=== PATIENT | male | born 1965 | race African-American/Black ===

== ENCOUNTER 2023-08-27 09:59 | Inpatient (IN) | payer OTHER ==
[2023-08-27 10:35] VITALS: BMI 19.8
[2023-08-27] MEDS ORDERED: BENZONATATE 200 MG CAPSULE PO PRN (11:01)
[2023-08-27] MEDS ORDERED: NALOXONE HCL 0.4 MG/ML VIAL IM PRN (11:01)
[2023-08-27] MEDS ORDERED: NICOTINE POLACRILEX 2 MG GUM BUC PRN (11:01)
[2023-08-27] MEDS ORDERED: MAGNESIUM HYDROX 2400MG/30ML ORAL SUSPENSION 30 ML CUP PO PRN (11:01)
[2023-08-27] MEDS ORDERED: LOPERAMIDE HCL 2 MG CAPSULE PO PRN (11:01)
[2023-08-27] MEDS ORDERED: ACETAMINOPHEN 325 MG TABLET (FP) PO PRN (11:01)
[2023-08-27] MEDS ORDERED: guaiFENesin 600 MG TABLET.ER (FP) PO PRN (11:01)
[2023-08-27] MEDS ORDERED: POLYETHYLENE GLYCOL (HEALTHYLAX) 3350 17 GM PACKET PO PRN (11:01)
[2023-08-27] MEDS ORDERED: NALOXONE HCL (KLOXXADO) 8 MG SPRAY NS PRN (11:01)
[2023-08-27] MEDS ORDERED: BENZOCAINE/MENTHOL (CHLORASEPTIC ) LOZENGE MM PRN (11:01)
[2023-08-27] MEDS ORDERED: MAG HYDROX/AL HYDROX/SIMETH 30 ML UNIT-DOSE CUP PO PRN (11:01)
[2023-08-27] MEDS ORDERED: PATIENT'S OWN MEDICATION (NON-FORMULARY) (Darunavir/Cob/Emtri/Tenof Alaf 1 EACH) PO SCH (11:45)
[2023-08-27] MEDS ORDERED: DARUNAVIR 800 MG/COBICISTAT 150MG TABLET PO SCH (11:45)
[2023-08-27] MEDS ORDERED: EMTRICITABINE/TENOFOV ALAFENAM (DESCOVY) TABLET PO SCH (11:45)
[2023-08-27] MEDS: AZITHROMYCIN 250 MG TABLET PO SCH (13:35)
[2023-08-27] MEDS: RILPIVIRINE HCL 25 MG TABLET PO SCH (14:03)
[2023-08-27] MEDS: DARUNAVIR/COB/EMTRI/TENOF ALAF 1 EACH TABLET PO SCH (14:03)
[2023-08-27] MEDS: THIAMINE HCL 100 MG TABLET (FP) PO SCH (21:18)
[2023-08-27] MEDS: MELATONIN 5 MG TABLETS PO SCH (21:18)
[2023-08-28] MEDS ORDERED: PATIENT'S OWN MEDICATION (NON-FORMULARY) (Lisinopril/Hydrochlorothiazide [Lisinopril-Hctz PO SCH (10:00)
[2023-08-28 11:24] LABS: CHLORIDE 109 mmol/L (98-107); SODIUM 142 mmol/L (136-145)
[2023-08-28 11:25] LABS: HEMATOCRIT 37.2 % (35.4-49); HEMOGLOBIN 12.2 GM/dL (11.7-16.9); MCH 31.7 pg (25.7-33.7); MCHC 32.7 g/dl (32.0-35.9); MEAN CELL VOLUME 96.9 fl (80-96); MEAN PLT VOLUME 9.4 fl (7.5-11.1); PLATELET COUNT 210 10^3/uL (134-434); RBC 3.84 M/mm3 (4.00-5.60); RDW 14.4 % (11.9-15.9); WHITE BLOOD COUNT 6.4 K/mm3 (4.0-10.0)
[2023-08-28] MEDS: HYDROCHLOROTHIAZIDE 25 MG TABLET (FP) PO SCH (11:27)
[2023-08-28] MEDS: PRENATAL VITAMINS W/ FOLIC ACID TABLET (FP) PO SCH (11:27)
[2023-08-28] MEDS: SULFAMETHOXAZOLE/TRIMETHOPRIM 800MG/160MG D.S. TABLET PO SCH (11:27)
[2023-08-28] MEDS: LISINOPRIL 20 MG TABLET PO SCH (11:27)
[2023-08-28 11:42] LABS: ALBUMIN 2.8 g/dl (3.4-5.0); ANION GAP 9 mmol/L (4-13); BLOOD UREA NITROGEN 12.8 mg/dL (7-18); CALCIUM 8.9 mg/dL (8.5-10.1); CO2 24 mmol/L (21-32)
[2023-08-28 11:43] LABS: GLUCOSE,RANDOM 161 mg/dL (74-106)
[2023-08-28 11:45] LABS: BILIRUBIN,TOTAL 0.4 mg/dL (0.2-1); SGOT/AST 15 U/L (15-37); SGPT/ALT 20 U/L (13-61)
[2023-08-28 11:46] LABS: ALK PHOS 53 U/L (45-117); TOT PROT 6.8 g/dl (6.4-8.2)
[2023-08-28 11:54] LABS: SYPHILIS W/ RPR CONF REACTIVE (NONREACTIVE)
[2023-08-29 07:48] LABS: URINE APPEARANCE CLEAR; URINE BILIRUBIN NEGATIVE (NEGATIVE); URINE COLOR YELLOW; URINE GLUCOSE (UA) NEGATIVE (NEGATIVE); URINE KETONE NEGATIVE (NEGATIVE); URINE LEUK ESTERASE NEGATIVE (NEGATIVE); URINE NITRITE NEGATIVE (NEGATIVE); URINE PROTEIN NEGATIVE (NEGATIVE); URINE UROBILINOGEN 0.2 mg/dL (0.2-1.0)
[2023-08-29] MEDS: RILPIVIRINE HCL 25 MG TABLET PO SCH (08:39)
[2023-08-29] MEDS: IBUPROFEN 600 MG TABLET (FP) PO PRN (09:52)
[2023-08-29] MEDS: COLLOIDAL OATMEAL 1 BAR EACH TP PRN (19:11)
[2023-08-30] MEDS ORDERED: CARBAMIDE PEROXIDE 6.5% OTIC 15 ML BOTTLE AD SCH (12:30)
[2023-08-30] MEDS: NALTREXONE HCL 50 MG TABLET PO SCH (13:23)
[2023-08-30] MEDS: METHOCARBAMOL 500 MG TABLET PO PRN (15:11)
[2023-08-30] MEDS: MELATONIN 5 MG TABLETS PO SCH (21:10)
[2023-08-31] MEDS: IBUPROFEN 400 MG TABLET (FP) PO PRN (06:14)
[2023-08-31] MEDS: NALTREXONE HCL 50 MG TABLET PO SCH (09:55)
[2023-08-31] MEDS: FLU VACCINE (FLULAVAL) PF 60 MCG/0.5 ML SYRINGE 2023-2024 IM ONE (10:43)
[2023-08-31 11:47] LABS: INR 0.99 (0.83-1.09); PROTHROMBIN TIME (PATIENT) 11.5 SEC (9.7-13.0)
[2023-08-31 11:53] LABS: MAGNESIUM 1.7 mg/dL (1.8-2.4)
[2023-08-31] MEDS: CARBAMIDE PEROXIDE 6.5% OTIC 15 ML BOTTLE AD PRN (12:39)
[2023-08-31] MEDS: CARBAMIDE PEROXIDE 6.5% OTIC 15 ML BOTTLE AD SCH (14:24)
[2023-08-31] MEDS: MAGNESIUM OXIDE 400 MG TABLET (FP) PO SCH (14:59)
[2023-09-06] MEDS: VARENICLINE TARTRATE 0.5 MG TAB PO SCH (15:04)
[2023-09-06] MEDS: SUMAtriptan SUCCINATE 25 MG TABLET PO ONE (15:04)
[2023-09-07] MEDS: SUVOREXANT 10 MG TABLET PO PRN (22:05)
[2023-09-08] MEDS: hydrOXYzine PAMOATE 25 MG CAPSULE (FP) PO PRN (21:10)
[2023-09-09] MEDS: VARENICLINE TARTRATE 0.5 MG TAB PO SCH (10:34)
[2023-09-09] MEDS ORDERED: SUVOREXANT 10 MG TABLET PO PRN (22:00)
[2023-09-10 07:13] VITALS: TEMP 98.3
[2023-09-10 10:18] VITALS: BP 126/83; PULSE 84; RESP 16
[2023-09-14] MEDS ORDERED: VARENICLINE TARTRATE 1 MG TAB PO SCH (22:00)
== END 2023-09-10 09:10 | disposition home or self-care (01) | DRG 772 ==
LOC: YASAS 09:59 → Y3E 15:48
PROVIDERS: ADMIT Allergy & Immunology; ATTEND Psychiatry & Neurology Pain Medicine
PROC: HZ42ZZZ Group Counseling for Substance Abuse Treatment, Cognitive-Behavioral (ICD-10-PCS; principal; 2023-08-27)
DX: F10.20 Alcohol dependence, uncomplicated (principal); F14.20 Cocaine dependence, uncomplicated; F12.20 Cannabis dependence, uncomplicated; F17.210 Nicotine dependence, cigarettes, uncomplicated; F32.A Depression, unspecified; Z21 Asymptomatic human immunodeficiency virus [HIV] infection status; I10 Essential (primary) hypertension; H61.21 Impacted cerumen, right ear; J06.9 Acute upper respiratory infection, unspecified
CPT/HCPCS: 36415; 80053; 80061; 80307; 81003; 82140; 82652; 82962; 83036; 83735; 85027; 85610; 86593; 86780; 86803; 87635; 87811; 90686; 93005; 93010; G0008

== ENCOUNTER 2023-12-28 11:07 | Inpatient (IN) | payer OTHER ==
[2023-12-28 12:23] VITALS: BMI 19.8
[2023-12-28] MEDS ORDERED: LOPERAMIDE HCL 2 MG CAPSULE PO PRN (12:47)
[2023-12-28] MEDS ORDERED: NALOXONE HCL (KLOXXADO) 8 MG SPRAY NS PRN (12:47)
[2023-12-28] MEDS ORDERED: BENZOCAINE/MENTHOL (CHLORASEPTIC ) LOZENGE MM PRN (12:47)
[2023-12-28] MEDS ORDERED: guaiFENesin 600 MG TABLET.ER (FP) PO PRN (12:47)
[2023-12-28] MEDS ORDERED: NALOXONE HCL 0.4 MG/ML VIAL IM PRN (12:47)
[2023-12-28] MEDS ORDERED: MAG HYDROX/AL HYDROX/SIMETH 30 ML UNIT-DOSE CUP PO PRN (12:47)
[2023-12-28] MEDS ORDERED: BENZONATATE 200 MG CAPSULE PO PRN (12:47)
[2023-12-28] MEDS: THIAMINE 100 MG TABLET PO SCH (21:28)
[2023-12-28] MEDS: MELATONIN 5 MG TABLETS PO SCH (21:28)
[2023-12-29] MEDS: RILPIVIRINE HCL 25 MG TABLET PO SCH (07:02)
[2023-12-29] MEDS: DARUNAVIR/COB/EMTRI/TENOF ALAF 1 EACH TABLET PO SCH (07:02)
[2023-12-29] MEDS: HYDROCHLOROTHIAZIDE 25 MG TABLET (FP) PO SCH (09:55)
[2023-12-29] MEDS: LISINOPRIL 20 MG TABLET PO SCH (09:55)
[2023-12-29] MEDS: PRENATAL VITAMINS W/ FOLIC ACID TABLET (FP) PO SCH (09:55)
[2023-12-29] MEDS ORDERED: PATIENT'S OWN MEDICATION (NON-FORMULARY) (Lisinopril/Hydrochlorothiazide [Lisinopril-Hctz PO SCH (10:00)
[2023-12-29 11:31] LABS: HEMATOCRIT 37.6 % (35.4-49); HEMOGLOBIN 12.5 GM/dL (11.7-16.9); MCH 32.5 pg (25.7-33.7); MCHC 33.1 g/dl (32.0-35.9); MEAN CELL VOLUME 98.1 fl (80-96); MEAN PLT VOLUME 9.1 fl (7.5-11.1); PLATELET COUNT 215 10^3/uL (134-434); RBC 3.84 M/mm3 (4.00-5.60); RDW 15.8 % (11.9-15.9); WHITE BLOOD COUNT 6.9 K/mm3 (4.0-10.0)
[2023-12-29 11:32] LABS: PH,URINE 5.5 (5.0-8.0); URINE APPEARANCE CLEAR; URINE BILIRUBIN NEGATIVE (NEGATIVE); URINE COLOR YELLOW; URINE GLUCOSE (UA) NEGATIVE (NEGATIVE); URINE KETONE NEGATIVE (NEGATIVE); URINE LEUK ESTERASE NEGATIVE (NEGATIVE); URINE NITRITE NEGATIVE (NEGATIVE); URINE PROTEIN NEGATIVE (NEGATIVE); URINE UROBILINOGEN 0.2 mg/dL (0.2-1.0)
[2023-12-29 11:57] LABS: POTASSIUM 4.2 mmol/L (3.5-5.1)
[2023-12-29 11:59] LABS: CALCIUM 9.3 mg/dL (8.5-10.1)
[2023-12-29 12:00] LABS: ALBUMIN 3.5 g/dl (3.4-5.0); BLOOD UREA NITROGEN 21.8 mg/dL (7-18)
[2023-12-29 12:03] LABS: CREATININE 1.3 mg/dL (0.55-1.3)
[2023-12-29 12:05] LABS: TOT PROT 7.2 g/dl (6.4-8.2)
[2023-12-29 12:13] LABS: BILIRUBIN,TOTAL 0.5 mg/dL (0.2-1)
[2023-12-29 13:05] LABS: SYPHILIS W/ RPR CONF REACTIVE (NONREACTIVE)
[2023-12-29] MEDS: IBUPROFEN 600 MG TABLET (FP) PO PRN (17:01)
[2023-12-29] MEDS: NICOTINE POLACRILEX 2 MG GUM BUC PRN (21:17)
[2023-12-30] MEDS: hydrOXYzine PAMOATE 25 MG CAPSULE (FP) PO PRN (06:01)
[2023-12-30] MEDS: ACETAMINOPHEN 325 MG TABLET (FP) PO PRN (09:21)
[2023-12-30] MEDS ORDERED: SUMAtriptan SUCCINATE 25 MG TABLET PO PRN (14:36)
[2023-12-30] MEDS ORDERED: amLODIPine BESYLATE 2.5 MG TABLET (FP) PO SCH (14:45)
[2023-12-30] MEDS: SUMAtriptan SUCCINATE 25 MG TABLET PO ONE (15:55)
[2023-12-30] MEDS: amLODIPine BESYLATE 2.5 MG TABLET (FP) PO SCH (15:55)
[2023-12-31] MEDS: LIDOCAINE 4% PATCH TP SCH (10:04)
[2023-12-31] MEDS: LIDOCAINE PATCH REMOVAL MC SCH (21:23)
[2024-01-01] MEDS: MAGNESIUM HYDROX 2400MG/30ML ORAL SUSPENSION 30 ML CUP PO PRN (11:56)
[2024-01-02] MEDS: IBUPROFEN 400 MG TABLET (FP) PO PRN (21:51)
[2024-01-05] MEDS: BACLOFEN 10 MG TABLET (FP) PO SCH (10:46)
[2024-01-06] MEDS: POLYETHYLENE GLYCOL (HEALTHYLAX) 3350 17 GM PACKET PO PRN (12:09)
[2024-01-08] MEDS: SUMAtriptan SUCCINATE 25 MG TABLET PO PRN (09:59)
[2024-01-11 06:41] VITALS: RESP 16; TEMP 97.7
[2024-01-11 09:40] VITALS: BP 103/69; PULSE 67
== END 2024-01-11 09:46 | disposition home or self-care (01) | DRG 772 ==
LOC: YASAS 11:07 → Y3W 13:05
PROVIDERS: ADMIT Allergy & Immunology; ATTEND Psychiatry & Neurology Pain Medicine
PROC: HZ42ZZZ Group Counseling for Substance Abuse Treatment, Cognitive-Behavioral (ICD-10-PCS; principal; 2023-12-28)
DX: F14.20 Cocaine dependence, uncomplicated (principal); F12.20 Cannabis dependence, uncomplicated; F17.210 Nicotine dependence, cigarettes, uncomplicated; Z21 Asymptomatic human immunodeficiency virus [HIV] infection status; I10 Essential (primary) hypertension; M54.50 Low back pain, unspecified; G89.29 Other chronic pain; R76.8 Other specified abnormal immunological findings in serum; Z86.19 Personal history of other infectious and parasitic diseases
CPT/HCPCS: 36415; 80053; 80305; 80307; 81003; 85027; 86593; 86780; 86803; 87536; 87811; 93005; 93010; J0475

== ENCOUNTER 2024-04-25 12:10 | Inpatient (IN) | payer OTHER ==
[2024-04-25 13:25] VITALS: BMI 19.6
[2024-04-25] MEDS ORDERED: NICOTINE POLACRILEX 2 MG GUM BUC PRN (14:03)
[2024-04-25] MEDS ORDERED: NALOXONE (NARCAN) HCL 4 MG/0.1 ML SPRAY NS PRN (14:03)
[2024-04-25] MEDS ORDERED: POLYETHYLENE GLYCOL (HEALTHYLAX) 3350 17 GM PACKET PO PRN (14:03)
[2024-04-25] MEDS ORDERED: NALOXONE HCL 0.4 MG/ML VIAL IM PRN (14:03)
[2024-04-25] MEDS ORDERED: LOPERAMIDE HCL 2 MG CAPSULE PO PRN (14:03)
[2024-04-25] MEDS ORDERED: MAG HYDROX/AL HYDROX/SIMETH 30 ML UNIT-DOSE CUP PO PRN (14:03)
[2024-04-25] MEDS ORDERED: MAGNESIUM HYDROX 2400MG/30ML ORAL SUSPENSION 30 ML CUP PO PRN (14:03)
[2024-04-25] MEDS: THIAMINE 100 MG TABLET PO SCH (21:51)
[2024-04-25] MEDS: MELATONIN 5 MG TABLETS PO SCH (21:51)
[2024-04-26] MEDS: guaiFENesin 600 MG TABLET.ER (FP) PO PRN (06:38)
[2024-04-26] MEDS: BENZOCAINE/MENTHOL (CHLORASEPTIC ) LOZENGE MM PRN (06:38)
[2024-04-26] MEDS: PRENATAL VITAMINS W/ FOLIC ACID TABLET (FP) PO SCH (10:15)
[2024-04-26] MEDS: BENZONATATE 200 MG CAPSULE PO PRN (10:16)
[2024-04-26] MEDS: NICOTINE 14 MG/24 HOURS TOPICAL PATCH TD SCH (11:30)
[2024-04-26] MEDS: amLODIPine BESYLATE 10 MG TABLET (FP) PO SCH (11:31)
[2024-04-26] MEDS: BICTEGRAV/EMTRICIT/TENOFOV (BIKTARVY) 50-200-25 MG TABLET PO SCH (11:31)
[2024-04-26] MEDS: LISINOPRIL 20 MG TABLET PO SCH (11:31)
[2024-04-26] MEDS: RILPIVIRINE HCL 25 MG TABLET PO SCH (12:11)
[2024-04-26 14:31] LABS: HEMATOCRIT 38.2 % (35.4-49); HEMOGLOBIN 12.3 GM/dL (11.7-16.9); MCH 31.1 pg (25.7-33.7); MCHC 32.2 g/dl (32.0-35.9); MEAN CELL VOLUME 96.3 fl (80-96); MEAN PLT VOLUME 9.1 fl (7.5-11.1); PLATELET COUNT 174 10^3/uL (134-434); RBC 3.96 M/mm3 (4.00-5.60); RDW 14.5 % (11.9-15.9); WHITE BLOOD COUNT 5.5 K/mm3 (4.0-10.0)
[2024-04-26 14:32] LABS: PH,URINE 6.5 (5.0-8.0); URINE APPEARANCE CLEAR; URINE BILIRUBIN NEGATIVE (NEGATIVE); URINE COLOR YELLOW; URINE GLUCOSE (UA) NEGATIVE (NEGATIVE); URINE KETONE NEGATIVE (NEGATIVE); URINE LEUK ESTERASE NEGATIVE (NEGATIVE); URINE NITRITE NEGATIVE (NEGATIVE); URINE PROTEIN NEGATIVE (NEGATIVE); URINE UROBILINOGEN 0.2 mg/dL (0.2-1.0)
[2024-04-26 14:33] LABS: CHLORIDE 108 mmol/L (98-107); POTASSIUM 3.9 mmol/L (3.5-5.1); SODIUM 144 mmol/L (136-145)
[2024-04-26 14:35] LABS: ALBUMIN 3.1 g/dl (3.4-5.0); ANION GAP 10 mmol/L (4-13); BLOOD UREA NITROGEN 10.3 mg/dL (7-18); CALCIUM 8.8 mg/dL (8.5-10.1); CO2 26 mmol/L (21-32); GLUCOSE,RANDOM 89 mg/dL (74-106)
[2024-04-26 14:37] LABS: SGOT/AST 18 U/L (15-37); SGPT/ALT 18 U/L (13-61)
[2024-04-26 14:39] LABS: BILIRUBIN,TOTAL 0.4 mg/dL (0.2-1); CREATININE 0.9 mg/dL (0.55-1.3); TOT PROT 6.8 g/dl (6.4-8.2)
[2024-04-26 14:41] LABS: ALK PHOS 60 U/L (45-117)
[2024-04-26] MEDS: hydrOXYzine PAMOATE 25 MG CAPSULE (FP) PO PRN (19:19)
[2024-04-26] MEDS: IBUPROFEN 600 MG TABLET (FP) PO PRN (19:20)
[2024-04-27] MEDS: PENICILLIN G BENZATHINE 2,400,000 UNIT/4 ML PFS IM ONE (10:37)
[2024-04-27] MEDS: IBUPROFEN 400 MG TABLET (FP) PO PRN (21:40)
[2024-04-28] MEDS ORDERED: BENZONATATE 200 MG CAPSULE PO PRN (10:01)
[2024-04-28] MEDS ORDERED: ACETAMINOPHEN 325 MG TABLET (FP) PO PRN (10:03)
[2024-04-28] MEDS: ACETAMINOPHEN 325 MG TABLET (FP) PO PRN (10:19)
[2024-04-28] MEDS: guaiFENesin 600 MG TABLET.ER (FP) PO SCH (10:39)
[2024-05-01] MEDS: BACLOFEN 10 MG TABLET (FP) PO SCH (13:29)
[2024-05-02] MEDS: QUEtiapine FUMARATE 50 MG TABLET PO SCH (21:39)
[2024-05-03 07:01] VITALS: RESP 18; TEMP 97.6
[2024-05-03 11:51] VITALS: BP 110/60; PULSE 71
[2024-05-04] MEDS ORDERED: PENICILLIN G BENZATHINE 2,400,000 UNIT/4 ML PFS IM ONE (10:00)
[2024-05-11] MEDS ORDERED: PENICILLIN G BENZATHINE 2,400,000 UNIT/4 ML PFS IM ONE (10:00)
== END 2024-05-03 13:30 | disposition home or self-care (01) | DRG 772 ==
LOC: YASAS 12:10 → Y5N 15:04
PROVIDERS: ADMIT Psychiatry & Neurology Pain Medicine; ATTEND Psychiatry & Neurology Pain Medicine
PROC: HZ42ZZZ Group Counseling for Substance Abuse Treatment, Cognitive-Behavioral (ICD-10-PCS; principal; 2024-04-25)
DX: F14.20 Cocaine dependence, uncomplicated (principal); F12.20 Cannabis dependence, uncomplicated; F17.210 Nicotine dependence, cigarettes, uncomplicated; Z21 Asymptomatic human immunodeficiency virus [HIV] infection status; I10 Essential (primary) hypertension; A53.9 Syphilis, unspecified; G47.00 Insomnia, unspecified; M62.838 Other muscle spasm; R06.2 Wheezing; Z56.0 Unemployment, unspecified; Z79.899 Other long term (current) drug therapy
CPT/HCPCS: 0241U-QW; 36415; 71045-TC-FY; 80053; 80305; 80307; 81003; 85027; 86593; 86780; 87070; 87205; 87811; 93005; 93010; J0475

== ENCOUNTER 2024-10-26 10:32 | Inpatient (IN) | payer OTHER ==
[2024-10-26 10:54] VITALS: BMI 19.0
[2024-10-26] MEDS ORDERED: NALOXONE (NARCAN) HCL 4 MG/0.1 ML SPRAY NS PRN (11:04)
[2024-10-26] MEDS ORDERED: MAGNESIUM HYDROX 2400MG/30ML ORAL SUSPENSION 30 ML CUP PO PRN (11:04)
[2024-10-26] MEDS ORDERED: IBUPROFEN 400 MG TABLET (FP) PO PRN (11:04)
[2024-10-26] MEDS ORDERED: hydrOXYzine PAMOATE 25 MG CAPSULE (FP) PO PRN (11:04)
[2024-10-26] MEDS ORDERED: BENZONATATE 200 MG CAPSULE PO PRN (11:04)
[2024-10-26] MEDS ORDERED: BENZOCAINE/MENTHOL (CHLORASEPTIC ) LOZENGE MM PRN (11:04)
[2024-10-26] MEDS ORDERED: guaiFENesin 600 MG TABLET.ER (FP) PO PRN (11:04)
[2024-10-26] MEDS ORDERED: POLYETHYLENE GLYCOL (HEALTHYLAX) 3350 17 GM PACKET PO PRN (11:04)
[2024-10-26] MEDS ORDERED: LOPERAMIDE HCL 2 MG CAPSULE PO PRN (11:04)
[2024-10-26] MEDS ORDERED: PATIENT'S OWN MEDICATION (NON-FORMULARY) (Lisinopril/Hydrochlorothiazide [Lisinopril-Hctz PO SCH (11:15)
[2024-10-26] MEDS ORDERED: amLODIPine BESYLATE 5 MG TABLET (FP) ONE (11:39)
[2024-10-26] MEDS ORDERED: LISINOPRIL 10 MG TABLET ONE (11:40)
[2024-10-26] MEDS ORDERED: PRENATAL VITAMINS W/ FOLIC ACID TABLET (FP) PO ONE (11:40)
[2024-10-26] MEDS ORDERED: HYDROCHLOROTHIAZIDE 12.5 MG CAPSULE (FP) ONE (11:41)
[2024-10-26] MEDS: amLODIPine BESYLATE 10 MG TABLET (FP) PO SCH (11:51)
[2024-10-26] MEDS: PRENATAL VITAMINS W/ FOLIC ACID TABLET (FP) PO SCH (11:57)
[2024-10-26] MEDS: HYDROCHLOROTHIAZIDE 25 MG TABLET (FP) PO SCH (11:57)
[2024-10-26] MEDS: LISINOPRIL 20 MG TABLET PO SCH (12:03)
[2024-10-26] MEDS: BICTEGRAV/EMTRICIT/TENOFOV (BIKTARVY) 50-200-25 MG TABLET PO SCH (12:37)
[2024-10-26] MEDS: SULFAMETHOXAZOLE/TRIMETHOPRIM 800MG/160MG D.S. TABLET PO SCH (12:37)
[2024-10-26] MEDS: THIAMINE 100 MG TABLET PO SCH (22:20)
[2024-10-26] MEDS: MELATONIN 5 MG TABLETS PO SCH (22:20)
[2024-10-26] MEDS: QUEtiapine FUMARATE 50 MG TABLET PO SCH (22:20)
[2024-10-27 12:14] LABS: HEMATOCRIT 35.4 % (35.4-49); HEMOGLOBIN 11.8 GM/dL (11.7-16.9); MCH 31.4 pg (25.7-33.7); MCHC 33.4 g/dl (32.0-35.9); MEAN CELL VOLUME 93.9 fl (80-96); MEAN PLT VOLUME 8.1 fl (7.5-11.1); PLATELET COUNT 192 10^3/uL (134-434); RBC 3.76 M/mm3 (4.00-5.60); RDW 14.3 % (11.9-15.9); WHITE BLOOD COUNT 4.6 K/mm3 (4.0-10.0)
[2024-10-27 12:25] LABS: POTASSIUM 3.5 mmol/L (3.5-5.1)
[2024-10-27 12:28] LABS: ALBUMIN 2.8 g/dl (3.4-5.0); BLOOD UREA NITROGEN 11.5 mg/dL (7-18); CALCIUM 8.8 mg/dL (8.5-10.1)
[2024-10-27 12:32] LABS: BILIRUBIN,TOTAL 0.3 mg/dL (0.2-1); TOT PROT 6.2 g/dl (6.4-8.2)
[2024-10-27 12:50] LABS: SYPHILIS W/ RPR CONF REACTIVE (NONREACTIVE)
[2024-10-27 13:13] LABS: HCV DIAGNOSTIC IN-HOUSE W/RFLX NON-REACTIVE (NONREACTIVE)
[2024-10-27 16:55] LABS: PH,URINE 6.5 (5.0-8.0); URINE APPEARANCE CLEAR; URINE BILIRUBIN NEGATIVE (NEGATIVE); URINE COLOR YELLOW; URINE GLUCOSE (UA) NEGATIVE (NEGATIVE); URINE KETONE NEGATIVE (NEGATIVE); URINE LEUK ESTERASE NEGATIVE (NEGATIVE); URINE NITRITE NEGATIVE (NEGATIVE); URINE PROTEIN NEGATIVE (NEGATIVE); URINE UROBILINOGEN 0.2 mg/dL (0.2-1.0)
[2024-10-28] MEDS: IBUPROFEN 600 MG TABLET (FP) PO PRN (13:50)
[2024-10-29] MEDS: ACETAMINOPHEN 325 MG TABLET (FP) PO PRN (09:47)
[2024-10-29] MEDS: NICOTINE POLACRILEX 4 MG GUM BUC PRN (15:51)
[2024-10-29] MEDS: LIDOCAINE 4% PATCH TP PRN (19:40)
[2024-10-29] MEDS: LIDOCAINE PATCH REMOVAL MC SCH (22:41)
[2024-11-03] MEDS: BACLOFEN 10 MG TABLET (FP) PO SCH (14:34)
[2024-11-03] MEDS ORDERED: BACLOFEN 10 MG TABLET (FP) PO SCH (22:00)
[2024-11-04] MEDS: NICOTINE POLACRILEX 2 MG GUM BUC PRN (12:41)
[2024-11-06 06:41] VITALS: RESP 16
[2024-11-08] MEDS: BICTEGRAV/EMTRICIT/TENOFOV (BIKTARVY) 50-200-25 MG TABLET PO SCH (06:36)
[2024-11-08] MEDS: MAG HYDROX/AL HYDROX/SIMETH 30 ML UNIT-DOSE CUP PO PRN (11:38)
[2024-11-08] MEDS ORDERED: ONDANSETRON *ODT* 4 MG TABLET SL PRN (11:43)
[2024-11-09 06:40] VITALS: TEMP 97.4
[2024-11-09 09:17] VITALS: BP 120/86; PULSE 74
== END 2024-11-09 10:55 | disposition home or self-care (01) | DRG 772 ==
LOC: YASAS 10:32 → Y3NR 11:52 → Y5N 10-27 12:19
PROVIDERS: ADMIT Psychiatry & Neurology Pain Medicine; ATTEND Psychiatry & Neurology Pain Medicine
PROC: HZ42ZZZ Group Counseling for Substance Abuse Treatment, Cognitive-Behavioral (ICD-10-PCS; principal; 2024-10-26)
DX: F14.20 Cocaine dependence, uncomplicated (principal); F10.20 Alcohol dependence, uncomplicated; F12.20 Cannabis dependence, uncomplicated; F17.210 Nicotine dependence, cigarettes, uncomplicated; F19.282 Other psychoactive substance dependence with psychoactive substance-induced sleep disorder; Z21 Asymptomatic human immunodeficiency virus [HIV] infection status; G47.00 Insomnia, unspecified; Z79.899 Other long term (current) drug therapy
CPT/HCPCS: 36415; 80053; 80305; 80307; 81003; 85027; 86593; 86780; 86803; 87811; 93005; 93010; J0475